=== PATIENT | male | born 1955 | race Caucasian/White ===

== ENCOUNTER → 2016-08-20 | Outpatient (CLI) | payer MEDICARE ==
[2016-08-20 10:32] LABS: INR - (THERAPEUTIC) 2.2 (0.9-1.1); PROTIME 24.1 SECONDS (9.6-11.1)
== END | disposition disaster alternative care site (69) ==
LOC: GLAB 10:09
PROVIDERS: Physician Assistant Medical
DX: Z86.718 Personal history of other venous thrombosis and embolism (principal)

== ENCOUNTER → 2016-11-12 | Outpatient (CLI) | payer MEDICARE ==
[2016-11-12 12:17] LABS: INR - (THERAPEUTIC) 2.25 (0.92-1.07); PROTIME 23.8 SECONDS (9.8-11.4)
== END | disposition disaster alternative care site (69) ==
LOC: GLAB 11:44
PROVIDERS: Physician Assistant Medical
DX: Z09 Encounter for follow-up examination after completed treatment for conditions other than malignant neoplasm (principal); Z86.718 Personal history of other venous thrombosis and embolism

== ENCOUNTER → 2017-02-04 | Outpatient (CLI) | payer MEDICARE, OTHER ==
[2017-02-04 12:27] LABS: INR - (THERAPEUTIC) 2.17 (0.92-1.07)
== END | disposition disaster alternative care site (69) ==
LOC: GLAB 11:51
PROVIDERS: Physician Assistant Medical
DX: Z51.81 Encounter for therapeutic drug level monitoring (principal); Z86.718 Personal history of other venous thrombosis and embolism; Z79.899 Other long term (current) drug therapy